=== PATIENT | male | born 1990 | race Caucasian/White ===

== ENCOUNTER 2017-05-12 12:36 | Outpatient (CLI) | payer OTHER ==
--- OUTSIDE RECORDS SUMMARY | 2017-05-12 12:43 | XMS ---
:1990 Author Care Team Providers Name Role Phone Margaux Chao Primary Care Provider Unavailable Allergies Code Code System Name Reaction Severity Status Onset NKDA Medications Name Status Start Date Stop Date Completed acetaminophen 300 mg-codeine 30 mg tablet 02/06/2017 Active alprazolam 1 mg tablet Not available Take 1 tablet twice a day by oral route. Completed amoxicillin 500 mg capsule 02/06/2017 Completed clindamycin 150 mg capsule 02/06/2017 Active cyclobenzaprine 10 mg tablet Not available Take 1 tablet 3 times a day by oral route for 30 days. Completed duloxetine 30 mg capsule,delayed release 02/06/2017 Active hydrocodone 10 mg-acetaminophen 325 mg tablet Not available Take 1 tablet every 4 hours by oral route for 30 days. Completed ibuprofen 800 mg tablet 02/06/2017 Completed methylprednisolone 4 mg tablets in a dose pack 02/06/2017 Completed oxycodone-acetaminophen 10 mg-325 mg tablet 02/06/2017 Completed penicillin V potassium 500 mg tablet 02/06/2017 Active tizanidine 6 mg capsule Not available Take 1 capsule 3 times a day by oral route. Problems None recorded. 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 Past Encounters 02/06/2017 Lumbar Post-laminectomy Syndrome; Generalized Anxiety Disorder Margaux Chao MD: [address] [facility] [address], [address], [place] [address], Ph. Social History Smoking Status Former Smoker Notes:quit 3 years ago Vaccine List None recorded. Plan of Care Reminders Provider Appointments None recorded. Lab None recorded. Referral None recorded. Procedures None recorded. Surgeries None recorded. Imaging None recorded. Vitals Height Weight BMI Blood Pressure 5 ft 10 in 188 lbs 27kg/m2 (1)144/114mm[Hg] (2)136/102mm[Hg]
--- OUTSIDE RECORDS SUMMARY | 2017-05-12 12:43 | XMS ---
[...] 02/06/2017 Completed clindamycin 150 mg capsule 02/06/2017 Completed cyclobenzaprine 10 mg tablet 03/06/2017 Take 1 tablet 3 times a day by oral route for 30 days. Completed duloxetine 30 mg capsule,delayed release 02/06/2017 Active hydrocodone 10 mg-acetaminophen 325 mg tablet Not available Take 1 tablet every 4 hours by oral route for 30 days. Completed ibuprofen 800 mg tablet 03/06/2017 Take 1 tablet twice a day by oral route. Active lisinopril 10 mg tablet Not available Take 1 tablet every day by oral route. Completed methylprednisolone 4 mg tablets in a dose pack 02/06/2017 Active naproxen sodium 550 mg tablet Not available Take 1 tablet every 12 hours by oral route. Completed oxycodone-acetaminophen 10 mg-325 mg tablet 02/06/2017 Completed penicillin V potassium 500 mg tablet 02/06/2017 Active tizanidine 6 mg capsule Not available Problems None recorded. Procedures Notes:December 2014 lumbar surgery pseudoarthrosis(removal of L5 TP which was articulating on sacrum) Appendectomy Lab Results None recorded. Past Encounters 03/06/2017 Benign Essential Hypertension; Pain in Thoracic Spine; Low Back Pain; Lumbar Post-laminectomy Syndrome; Generalized Anxiety Disorder Margaux Chao MD: [address], [address], [place] [address], Ph. 02/06/2017 Lumbar Post-laminectomy Syndrome; Generalized Anxiety Disorder Margaux Chao MD: [address], [address], [place] [address], Ph. Social History Smoking Status Former Smoker Notes:quit 3 years ago Vaccine List None recorded. Plan of Care Reminders Provider Appointments None recorded. Lab None recorded. Referral None recorded. Procedures None recorded. Surgeries None recorded. Imaging None recorded. Vitals 03/06/2017 02:00PM Est Patient Height Weight BMI Blood Pressure 5 ft 10 in 188 lbs 27kg/m2 146/100mm[Hg] 02/06/2017 02:45PM New Patient Height Weight BMI Blood Pressure 5 ft 10 in 188 lbs 27kg/m2 (1)144/114mm[Hg] (2)136/102mm[Hg]
--- NOTE | 2017-05-12 15:13 | MRI ---
MRI THORACIC SPINE WITHOUT CONTRAST: COMPARISON: 07/26/15. HISTORY: Thoracic spine pain. TECHNIQUE: Multiplanar, multisequence MR images were obtained in the thoracic spine without contrast. FINDINGS: There is slight loss of intervertebral disk space height from T6-7 through T9-10. This has not herring ged significantly compared to the prior examination. The vertebral bodies demonstrate normal height and alignment without fracture or subluxation. Schmorl's nodes are seen in the lower thoracic spin e, unchanged. The visualized cord demonstrates normal signal throughout. There are very minimal disk bulges from T6-7 through T8-9. These do not cause significant neural fo raminal or central canal stenosis. No posterior facet arthrosis is seen. The prevertebral and paraspinal soft tissues are unremarkable. IMPRESSION: Minimal degenerative changes in the lower thoracic spine without significant neural foraminal or dayana tral canal stenosis. The Schmorl's nodes in a young patient could potentially represent Scheuermann 's disease. POS: [facility]
== END 2017-05-12 12:37 | disposition home or self-care (01) ==
LOC: TBSIIMAG 12:36
PROVIDERS: ATTEND Neurological Surgery
DX: M54.6 Pain in thoracic spine (principal); M47.894 Other spondylosis, thoracic region
CPT/HCPCS: 72146

== ENCOUNTER 2017-06-09 08:04 | Outpatient (CLI) | payer OTHER ==
--- NOTE | 2017-06-09 15:55 | MRI ---
LUMBAR SPINE MRI WITHOUT CONTRAST: HISTORY: Spondylosis of the lumbosacral region. Previous back surgery. COMPARISON: 01/13/2015 TECHNIQUE: A lumbar spine MRI is performed without contrast. Multisequential, multiplanar imaging is performed . FINDINGS: Appropriate T1 marrow signal intensity of the lumbar vertebrae. Lumbar spine vertebral body height is maintained. There is no fracture. No significant STIR hyperintensity to suggest vertebral body edema or ligamentous injury. The conus medullaris terminates at the T12 level. Symmetric signal intensity of the psoas muscles. Appropriate signal intensity of the visualized anthony id organs. T12-L1: Adequate disk hydration. No significant central canal stenosis or foraminal narrowing. L1-L2: Adequate disk hydration. No significant central canal stenosis or foraminal narrowing. L2-L3: Adequate disk hydration. No significant central canal stenosis or foraminal narrowing. L3-L4: Adequate disk hydration. No significant posterior disk abnormality. No significant central canal stenosis. Bilaterally, the neural foramina are patent. L4-L5: Adequate disk hydration. No significant posterior disk abnormality. No significant central canal stenosis. The neural foramina are patent bilaterally. L5-S1: Adequate disk hydration. No significant central canal stenosis. The neural foramina are pa tent. IMPRESSION: No significant central canal stenosis or foraminal narrowing. POS: [facility]
== END 2017-06-09 08:05 | disposition home or self-care (01) ==
LOC: MRI 08:04
PROVIDERS: ATTEND Specialist
DX: M47.817 Spondylosis without myelopathy or radiculopathy, lumbosacral region (principal); M47.816 Spondylosis without myelopathy or radiculopathy, lumbar region; M43.16 Spondylolisthesis, lumbar region
CPT/HCPCS: 72148

== ENCOUNTER 2020-11-15 07:03 | Emergency (ER) | payer SELFPAY ==
[2020-11-15] MEDS ORDERED: HYDROcodone/Acetaminophen 5/325 mg Tablet ONE (07:43)
[2020-11-15] MEDS ORDERED: Ondansetron PF 4 MG/2 ML Vial ONE (07:44)
[2020-11-15] MEDS ORDERED: Pantoprazole 40 MG VIAL ONE (07:44)
[2020-11-15] MEDS ORDERED: Mag-Al 1200 mg/1200 mg/30 ML UDCUP ONE (07:44)
[2020-11-15] MEDS ORDERED: Lidocaine Viscous Sol 2% 15 ml UD Cup ONE (07:44)
[2020-11-15 07:55] LABS: #Lymphocytes 1.3 thou/uL (1.20-3.40); #Monocytes 0.5 thou/uL (0.11-0.59); #Neutrophils 6.2 thou/uL (1.40-6.50); %Basophils 0.5 % (0.0-1.0); %Eosinophils 0.1 % (0.0-10.0); %Lymphocytes 16.5 % (21.0-51.0); %Monocytes 6.7 % (0.0-10.0); %Neutrophils 76.3 % (42.0-75.0); Mean Corpuscular HGB CONC 34.8 g/dL (32.0-36.0); Mean Corpuscular Hemoglobin 32.4 pg (27.0-31.0); Mean Corpuscular Volume 93.1 fL (78.0-98.0); Mean Platelet Volume 8.1 fL (7.4-10.4); Platelet Count 217 thou/uL (130-400); RBC Distribution Width 11.5 % (11.5-14.5); Red Blood Cell (RBC) Count 4.61 mill/uL (4.70-6.10); White Blood Cell (WBC) Count 8.1 thou/uL (4.8-10.8)
[2020-11-15 08:07] LABS: ALT (SGPT) 42 U/L (8-55); AST (SGOT) 23 U/L (5-34); Albumin 4.8 g/dL (3.5-5.0); Alkaline Phosphatase 59 U/L (40-110); Anion Gap 14 mmol/L (10-20); BUN (Urea Nitrogen) 21 mg/dL (8.9-20.6); Bilirubin, Total 1.3 mg/dL (0.2-1.2); CK (CPK) 94 U/L (30-200); Calc. Creatinine Clearance 0 mL/min (70-130); Calcium 9.9 mg/dL (7.8-10.44); Carbon Dioxide 29 mmol/L (22-29); Chloride 99 mmol/L (98-107); Globulin 3.1 g/dL (2.4-3.5); Glucose 126 mg/dL (70-105); Lipase 33 U/L (8-78); Magnesium 1.9 mg/dL (1.6-2.6); Protein, Total 7.9 g/dL (6.0-8.3); Sodium 139 mmol/L (136-145)
== END 2020-11-15 08:58 | disposition home or self-care (01) ==
LOC: ERS 07:03
DX: R11.2 Nausea with vomiting, unspecified (principal); I10 Essential (primary) hypertension; Z79.899 Other long term (current) drug therapy
CPT/HCPCS: 80053; 82550; 83690; 83735; 84484; 85025; 93005; 96374; 96375; C9113; J2405

== ENCOUNTER 2020-12-01 05:31 | Observation (INO) | payer SELFPAY ==
[2020-12-01] MEDS ORDERED: Boostrix 0.5 ML (Tdap) VIAL ONE (05:52)
[2020-12-01] MEDS ORDERED: Cefepime 2 GM VIAL ONE (05:52)
[2020-12-01] MEDS ORDERED: Sodium Chloride 0.9% 100 ML ONE (05:52)
[2020-12-01] MEDS ORDERED: cefTRIAXone\\ROCEPHIN 2 GM VIAL ONE (05:54)
[2020-12-01] MEDS ORDERED: Morphine 4 MG/ML VIAL ONE (06:10)
[2020-12-01] MEDS ORDERED: Ondansetron PF 4 MG/2 ML Vial ONE ×2 (06:10→15:12)
[2020-12-01] MEDS ORDERED: Vancomycin 1 GM/200 ML BAG ONE (06:10)
[2020-12-01 06:16] LABS: #Eosinphils 0.3 thou/uL (0.0-0.7); #Lymphocytes 1.1 thou/uL (1.20-3.40); #Monocytes 0.6 thou/uL (0.11-0.59); #Neutrophils 9.1 thou/uL (1.40-6.50); %Basophils 0.2 % (0.0-1.0); %Eosinophils 2.6 % (0.0-10.0); %Lymphocytes 10.1 % (21.0-51.0); %Monocytes 5.6 % (0.0-10.0); %Neutrophils 81.5 % (42.0-75.0); Hemoglobin 13.3 g/dL (14.0-18.0); Mean Corpuscular HGB CONC 33.8 g/dL (32.0-36.0); Mean Corpuscular Hemoglobin 31.6 pg (27.0-31.0); Mean Corpuscular Volume 93.5 fL (78.0-98.0); Mean Platelet Volume 7.8 fL (7.4-10.4); Platelet Count 164 thou/uL (130-400); RBC Distribution Width 11.2 % (11.5-14.5); Red Blood Cell (RBC) Count 4.21 mill/uL (4.70-6.10); White Blood Cell (WBC) Count 11.1 thou/uL (4.8-10.8)
[2020-12-01] MEDS ORDERED: Ketorolac Tromethamine 30 MG/ML VIAL ONE (06:20)
[2020-12-01 06:42] LABS: ALT (SGPT) 36 U/L (8-55); AST (SGOT) 24 U/L (5-34); Albumin 4.1 g/dL (3.5-5.0); Alkaline Phosphatase 61 U/L (40-110); Anion Gap 14 mmol/L (10-20); BUN (Urea Nitrogen) 21 mg/dL (8.9-20.6); Bilirubin, Total 0.6 mg/dL (0.2-1.2); Calc. Creatinine Clearance 0 mL/min (70-130); Carbon Dioxide 25 mmol/L (22-29); Chloride 100 mmol/L (98-107); Globulin 2.9 g/dL (2.4-3.5); Glucose 107 mg/dL (70-105); Potassium 3.8 mmol/L (3.5-5.1); Sodium 135 mmol/L (136-145)
[2020-12-01 07:29] LABS: SARS-CoV-2 NAA Rapid Test Not Detected (NotDetected)
[2020-12-01] MEDS ORDERED: Ondansetron PF 4 MG/2 ML Vial IVP PRN (07:48)
[2020-12-01] MEDS ORDERED: Bisacodyl 5 MG TAB PO PRN (07:48)
[2020-12-01] MEDS ORDERED: Sodium Chloride 0.9% 1,000 ML IV SCH (09:45)
[2020-12-01] MEDS: Morphine 4 MG/ML VIAL SLOW IVP PRN ×2 (10:21→20:09)
[2020-12-01 12:03] VITALS: BMI 23.0
[2020-12-01] MEDS ORDERED: Fentanyl 100 MCG/2 ML VIAL ONE (15:00)
[2020-12-01] MEDS ORDERED: Dexamethasone 20 MG/5 ML VIAL ONE (15:12)
[2020-12-01] MEDS ORDERED: Lidocaine 1% PF 5 ML VIAL ONE (15:12)
[2020-12-01] MEDS ORDERED: PROPOFOL 200 MG/20 ML VIAL ONE (15:12)
[2020-12-01] MEDS ORDERED: Lidocaine 1% (PF) 30 ML VIAL ONE (15:21)
[2020-12-01] MEDS ORDERED: Bupivacaine 0.25% HCL 30 ML VIAL ONE (15:21)
[2020-12-01] MEDS ORDERED: Morphine 2 MG/ML VIAL SLOW IVP PRN (16:17)
[2020-12-01] MEDS ORDERED: HYDROcodone/Acetaminophen 5/325 mg Tablet PO PRN ×2 (16:17→16:18)
[2020-12-01] MEDS ORDERED: ALPRAZolam 1 MG TAB PO PRN (16:40)
[2020-12-01] MEDS: Vancomycin 1.5 GRAM/300 ML BAG 1.5 GM in Premix Bag 1 BAG IVPB SCH (17:39)
[2020-12-01] MEDS: Piperacillin/Tazobactam 3.375 GM in Sodium Chloride 0.9% 100 ML IVPB SCH (19:40)
[2020-12-01] MEDS: Cyclobenzaprine 10 MG TAB PO SCH (20:09)
[2020-12-02] MEDS: Vancomycin 1.5 GRAM/300 ML BAG 1.5 GM in Premix Bag 1 BAG IVPB SCH ×3 (00:11→18:07)
[2020-12-02] MEDS: Piperacillin/Tazobactam 3.375 GM in Sodium Chloride 0.9% 100 ML IVPB SCH ×5 (00:12→23:52)
[2020-12-02] MEDS: HYDROcodone/Acetaminophen 10/325 mg Tablet PO PRN ×5 (03:49→21:12)
[2020-12-02 05:33] LABS: #Lymphocytes 0.6 thou/uL (1.20-3.40); #Monocytes 0.5 thou/uL (0.11-0.59); #Neutrophils 10.8 thou/uL (1.40-6.50); %Eosinophils 0.1 % (0.0-10.0); %Monocytes 3.8 % (0.0-10.0); Hemoglobin 12.2 g/dL (14.0-18.0); Mean Corpuscular HGB CONC 33.7 g/dL (32.0-36.0); Mean Corpuscular Hemoglobin 32.4 pg (27.0-31.0); Mean Corpuscular Volume 96.1 fL (78.0-98.0); Mean Platelet Volume 8.2 fL (7.4-10.4); Platelet Count 147 thou/uL (130-400); RBC Distribution Width 11.2 % (11.5-14.5); Red Blood Cell (RBC) Count 3.75 mill/uL (4.70-6.10); White Blood Cell (WBC) Count 11.9 thou/uL (4.8-10.8)
[2020-12-02 05:54] LABS: Anion Gap 15 mmol/L (10-20); BUN (Urea Nitrogen) 15 mg/dL (8.9-20.6); Calc. Creatinine Clearance 146 mL/min (70-130); Calcium 8.8 mg/dL (7.8-10.44); Carbon Dioxide 22 mmol/L (22-29); Chloride 101 mmol/L (98-107); Glucose 147 mg/dL (70-105); Sodium 134 mmol/L (136-145)
[2020-12-02] MEDS: Ibuprofen 200 MG TAB PO PRN (06:04)
[2020-12-02] MEDS: Cyclobenzaprine 10 MG TAB PO SCH ×3 (08:35→21:13)
[2020-12-02] MEDS ORDERED: Lisinopril/Hydrochlorothiazide 10 mg/12.5 mg Tablet PO SCH (09:00)
[2020-12-02] MEDS: Morphine 4 MG/ML VIAL SLOW IVP PRN ×4 (10:26→22:43)
[2020-12-02 17:51] LABS: Vancomycin, Trough 17.2 ug/mL
[2020-12-03] MEDS: Vancomycin 1.5 GRAM/300 ML BAG 1.5 GM in Premix Bag 1 BAG IVPB SCH ×2 (00:33→08:16)
[2020-12-03] MEDS: HYDROcodone/Acetaminophen 10/325 mg Tablet PO PRN ×2 (03:37→08:17)
[2020-12-03] MEDS: Morphine 4 MG/ML VIAL SLOW IVP PRN (06:12)
[2020-12-03] MEDS: Piperacillin/Tazobactam 3.375 GM in Sodium Chloride 0.9% 100 ML IVPB SCH (06:12)
[2020-12-03] MEDS: Ibuprofen 200 MG TAB PO PRN (06:55)
[2020-12-03] MEDS: Cyclobenzaprine 10 MG TAB PO SCH (08:17)
[2020-12-03 12:07] VITALS: TEMP 98.2
[2020-12-03 12:08] VITALS: BP 113/73
== END 2020-12-03 12:42 | disposition home or self-care (01) ==
LOC: ERS 05:31 → SUATTDRO 05:31 → SURG A 06:38
PROVIDERS: ADMIT Hospitalist; ATTEND Internal Medicine
PROC: 0L980ZZ Drainage of Left Hand Tendon, Open Approach (ICD-10-PCS; principal; 2020-12-01)
DX: S63.631A Sprain of interphalangeal joint of left index finger, initial encounter (principal); L03.012 Cellulitis of left finger; B95.61 Methicillin susceptible Staphylococcus aureus infection as the cause of diseases classified elsewhere; S61.231A Puncture wound without foreign body of left index finger without damage to nail, initial encounter; E87.1 Hypo-osmolality and hyponatremia; I10 Essential (primary) hypertension; E78.5 Hyperlipidemia, unspecified; F17.220 Nicotine dependence, chewing tobacco, uncomplicated; G89.4 Chronic pain syndrome; Z16.11 Resistance to penicillins; Z79.899 Other long term (current) drug therapy; Z20.822 Contact with and (suspected) exposure to COVID-19; X58.XXXA Exposure to other specified factors, initial encounter; Y93.89 Activity, other specified; Y99.0 Civilian activity done for income or pay
CPT/HCPCS: 36415; 36416; 80048; 80053; 80202; 85025; 87070; 87077; 87186; 87205; 90471; 90715; 96365; 96366; 96367; 96375; 96376; G0378; J0692; J0696; J1100; J1885; J2001; J2270; J2405; J2543; J2704; J3010; J3370; J3490; S0020; U0002